=== PATIENT | female | born 1935 | race Caucasian/White ===

== ENCOUNTER 2020-12-17 10:32 | Inpatient (IN) | payer MEDICARE, OTHER ==
[~2020-12-17] VITALS: Ht 167.6 cm; Wt 75.9 kg
[2020-12-17] MEDS ORDERED: DULO60 PO (10:55)
[2020-12-17] MEDS ORDERED: METF500 PO (10:56)
[2020-12-17] MEDS ORDERED: GABA800 (10:57)
[2020-12-17] MEDS ORDERED: POTCHL20ER PO (10:58)
[2020-12-17] MEDS ORDERED: ABILIFY MYCITE2 M2 PO (10:59)
[2020-12-17] MEDS ORDERED: PRAM.5 PO ×2 (10:59→11:47)
[2020-12-17] MEDS ORDERED: EXELON1 EA11 (11:02)
[2020-12-17] MEDS ORDERED: RIVASTIGMINE6 MG PO (11:03)
[2020-12-17 11:06] LABS: BASOPHILS ABSOLUTE AUTO 0.03 K/mm3 (0.00-0.23); BASOPHILS PERCENT AUTO 0 % (0-2); EOSINOPHILS ABSOLUTE AUTO 0.01 K/mm3 (0.00-0.68); EOSINOPHILS PERCENT AUTO 0 % (0-6); Hematocrit 32.7 % (33.0-51.0); Hemoglobin 10.5 g/dL (11.5-16.0); IMMATURE GRAN ABSOLUTE AUTO 0.09 K/mm3 (0.00-0.10); IMMATURE GRAN PERCENT AUTO 1 % (0-1); LYMPHOCYTES ABSOLUTE AUTO 1.93 K/mm3 (0.84-5.20); LYMPHOCYTES PERCENT AUTO 11 % (21-46); MONOCYTES ABSOLUTE AUTO 1.71 K/mm3 (0.16-1.47); MONOCYTES PERCENT AUTO 10 % (4-13); Mean Corpuscular HGB 29.2 pg (26.0-34.0); Mean Corpuscular HGB Conc 32.1 g/dL (31.5-36.5); Mean Corpuscular Volume 91 fL (80-100); Mean Platelet Volume 9.5 fL (9.1-12.4); NEUTROPHILS ABSOLUTE AUTO 13.31 K/mm3 (1.96-9.15); NEUTROPHILS PERCENT AUTO 78 % (41-73); Platelet Count 345 K/mm3 (150-400); RDW Coefficient Variation 15.9 % (11.7-14.2); RDW Standard Deviation 52.9 fL (35.1-46.3); Red Blood Cell Count 3.59 M/mm3 (3.80-5.20); White Blood Cell Count 17.08 K/mm3 (4.00-11.30)
[2020-12-17 11:26] LABS: Alanine Aminotransfer (ALT/SGP 55 U/L (12-78); Albumin, Blood 2.4 g/dL (3.4-5.0); Albumin/Globulin Ratio 0.5 (0.8-1.8); Alk Phos 127 U/L (50-136); Anion Gap 6 mmol/L (6-16); Aspartate Aminotrans (AST/SGOT 68 U/L (12-37); Bilirubin, Total 1.1 mg/dL (0.1-1.0); Blood Urea Nitrogen 19 mg/dL (8-24); Bun/Creatinine Ratio 25.4 (12.0-20.0); CO2, Blood 23 mmol/L (21-32); Chloride, Blood 103 mmol/L (98-108); Creatinine, Blood 0.75 mg/dL (0.40-1.00); Globulin, Blood 5.3 g/dL (2.2-4.0); Glomerular Filtration Rate >60 (60-); Glucose, Blood 258 mg/dL (70-99); Potassium, Blood 4.8 mmol/L (3.5-5.5); Sodium, Blood 132 mmol/L (136-145); Total Protein, Blood 7.7 g/dL (6.4-8.2); Troponin I 0.168 ng/mL (0.000-0.040)
[2020-12-17] MEDS ORDERED: EXELON1 EA11 TOP (11:48)
[2020-12-17] MEDS ORDERED: Percocet 10-321 EACH PO (11:50)
[2020-12-17 11:56] LABS: SARS-Cov-2 (COVID-19) PCR, MMC NEGATIVE (NEGATIVE)
[2020-12-17 13:11] LABS: Source, Urine Clean Catch
[2020-12-17 13:12] LABS: Appearance, Urine Turbid (Clear); Bilirubin, Urine Neg (Neg); Blood, Urine 4+ (Neg); Color, Urine Yellow (P-Yellow); Glucose Qualitative, Urine 2+ (Neg); Ketones, Urine 1+ (Neg); Leukocyte Esterase, Urine 3+ (Neg); Nitrite, Urine Neg (Neg); Protein, Urine 3+ (Neg); Specific Gravity, Urine 1.025 (1.003-1.022); Urobilinogen, Urine 1+ (Normal)
[2020-12-17 13:29] LABS: Bacteria Many /hpf; Squamous Epithelial Cells Many /hpf (Few); White Blood Cells, Urine TNTC /hpf (0-5)
--- NOTE | 2020-12-17 18:19 | NUR ---
PT ARRIVED FROM ER THIS AFTERNOON WITH RESP FAILURE. PT WITH PNA TO BILAT LUNGS, UTI AND ELEVATED BNP. PT WITH MILD CONFUSION AT BASELINE WHICH WORSENS THIS EVENING, PER SON THIS HAS BEEN NORMAL FOR HER IN RECENT MONTHS. PT WAS MOVED FROM [place] YESTERDAY TO COME LIVE IN ASSISTED LIVING. PT ANSWERS MOST QUESTIONS APPROPRIATELY, BECOMES GUARDED WHEN IT IS DISCUSSED WITH FMAILY IN FRONT OF HER ABOUT HER CONFUSION. PT REPORTS CHRONIC BACK PAIN WHICH SHE WAS TREATED WITH PERCOCET FOR PAIN. PT STRAIGHT CATH'S FOR URINE AT HOME, PT WAS STRAIGHT CATHED THIS EVENING WITH 200ML OUTPUT. 3+ EDEMA NOTED TO LEGS BILAT WITH WEEPING WOUNDS NOTED TO LEGS BILAT WHICH ARE REDRESSED UPON ARRIVAL.
--- NOTE | 2020-12-17 20:13 | NUR ---
STATUS UPDATE PT FOUND IN ROOM W/AIRVO OFF. SATS DOWN TO LOW 80'S. PT C/O PAIN IN NECK AND BACK. STATES "I'M CHOKING!" APPEARS PALE AND ANXIOUS. NON-PRODUCTIVE COUGH. THIS RN AND WHITNEY HUTCHINSON AT BEDSIDE TO REASSURE PT AND REAPPLY AIRVO. PT REQUESTS BLANKETS OFF. PT CALMS WITH STAFF AT BEDSIDE. AIRVO AT 45 L/MIN AND 95% FIO2. RR IS 40-50 BPM. RR BEGINS TO SLOW WITH THIS RN AT BEDSIDE, PT GIVEN PO MEDS PER ORDERS AND PRN TYLENOL. PT REQUESTS "SOMETHING FOR THIS COLD." LS COARSE T/O, DIMINISHED IN BASES. MO WHEEZING NOTED BY THIS RN ON AUSCULTATION. PT SATS UP TO 92-93%. PT PULLS AIRVO OUT OF NOSE, DESATS BACK DOWN INTO 80'S. THIS RN REMINDS PT NOT TO REMOVE AIRVO AND NEED FOR O2. PT STATES "I KNOW, I KNOW." PT HAS DRY SOUNDING NON-PRODUCTIVE COUGH.
--- NOTE | 2020-12-17 22:06 | NUR ---
PT STATUS PT CONTINUES TO PULL AT AIRVO AND PINCH TUBING. THIS RN, ELDA AND NERYEDA RT, AND WHITNEY SOLICITING FREIGHT AGENT EDUCATE PT ON NEED TO KEEP AIRVO ON D/T LOW SATS. PT VERBALIZES UNDERSTANDING. SATS 89-93% ON AIRVO AT 60 LPM AND FIO2 OF 95%.
--- NOTE | 2020-12-17 22:50 | NUR ---
PT STATUS PT DISCONNECTS EWING CATHETER FROM BAG TUBING, FOUND BY NEDA SENA WHEN AT BEDSIDE TO CHANGE TELE STICKERS. PT STATES SHE WAS TRYING TO REMOVE THE RED TAG BECAUSE SHE DIDN'T THINK IT NEEDED TO BE ON THE EWING. THIS RN EDUCATES PT ABOUT NOT TOUCHING OR PULLING AT LINES, TUBES, WIRES. PT VERBALIZES UNDERSTANDING. MEGHAN MCKINNEY AND WHITNEY GRAHAMA ASSIST THIS RN WITH CLEANING PT UP AND CHANGING LINENS. PT SAT UP HIGH IN BED, SATS MID 80'S ON AIRVO, COMES UP TO 90'S AFTER SEVERAL MINUTES. PT REMINDED BY THIS RN NOT TO MESS WITH ANY CORDS, LINES, TUBES.
[2020-12-17 23:37] LABS: Source, Urine Catheter
[2020-12-17 23:39] LABS: Bilirubin, Urine Neg (Neg); Blood, Urine 3+ (Neg); Glucose Qualitative, Urine 4+ (Neg); Ketones, Urine Neg (Neg); Leukocyte Esterase, Urine 2+ (Neg); Nitrite, Urine Neg (Neg); Protein, Urine 2+ (Neg); Urobilinogen, Urine 3+ (Normal)
[2020-12-17 23:49] LABS: Appearance, Urine Hazy (Clear); Color, Urine Yellow (P-Yellow)
[2020-12-17 23:51] LABS: Bacteria Mod /hpf; Squamous Epithelial Cells Few /hpf (Few); White Blood Cells, Urine TNTC /hpf (0-5)
--- NOTE | 2020-12-17 23:58 | NUR ---
STATUS UPDATE PT SATS RAPIDLY DROP TO 50'S-60'S ON THE MONITOR, WHEN THIS RN TO BEDSIDE, PT HAS AIRVO CANNULA PUSHED UP AGAINST THE TIP OF HER NOSE PULLED OUT OF HER NOSTRILS AND IS NOT GETTING ANY O2 FLOW. THIS RN REPLACES CANNULA AND PROVIDES PT WITH EDUCATION REGARDING PLACEMENT OF AIRVO. SATS SLOWLY BACK UP TO 93% AFTER SEVERAL MINUTES WITH THIS RN AT BEDSIDE. GRZEGORZ RN EDUCATES PT ON MEDS AVAILABLE FOR C/O DISCOMFORT AND COUGH. PT C/O THAT AIR IN AIRVO IS "TOO COLD" THIS RN CALLS NEREYDA RT, NEREYDA STATES D/T FLUID CHANGE ON AIRVO IT WILL TAKE SOME TIME TO WARM UP.
[2020-12-18 01:10] LABS: Adenovirus Not Detected (NOT DETECT); Bordetella pertussis Not Detected (NOT DETECT); Chlamydophila pneumoniae Not Detected (NOT DETECT); Coronavirus 229E Not Detected (NOT DETECT); Coronavirus HKU1 Not Detected (NOT DETECT); Coronavirus NL63 Not Detected (NOT DETECT); Coronavirus OC43 Not Detected (NOT DETECT); Human Metapneumovirus Not Detected (NOT DETECT); Human Rhinovirus/Enterovirus Not Detected (NOT DETECT); Influenza A/2009-H1 Not Detected (NOT DETECT); Influenza A/H1 Not Detected (NOT DETECT); Influenza A/H3 Not Detected (NOT DETECT); Influenza B Not Detected (NOT DETECT); Mycoplasma pneumoniae Not Detected (NOT DETECT); Parainfluenza Virus 1 Not Detected (NOT DETECT); Parainfluenza Virus 2 Not Detected (NOT DETECT); Parainfluenza Virus 3 Not Detected (NOT DETECT); Parainfluenza Virus 4 Not Detected (NOT DETECT); Respiratory Syncytial Virus Not Detected (NOT DETECT); SARS-Cov-2 (COVID-19), BioFire Not Detected (NOT DETECT)
--- NOTE | 2020-12-18 02:57 | NUR ---
STATUS UPDATE PT TOLERATING CPAP WELL, SATS 94-97% AT THIS TIME ON CPAP. APPEARS CALMER. RR IS DECREASED. CURRENTLY 22-26 BMP DOWN FROM 40-50 BPM. PT HAS BEEN MEDICATED PER ORDERS WITH ATIVAN AND LASIX. EWING DRAINING JADA COLORED URINE. APPEARS TO CURRENLTY HAVE OUT 500 MLS IN BAG SINCE INSERTION THIS SHIFT.
--- NOTE | 2020-12-18 03:51 | NUR ---
BLOOD IN URINE BLOOD AND LARGE CLOT SEEN IN EWING CATHETER BAG AND TUBING, CLOT ADHERED TO SIDE OF TUBING, RED URINE DRAINING. FOLLOWING REASSESSMENT, CLEAR URINE NOW DRAINING AROUND CLOT IN TUBING. AROUND 1200 MLS OUT IN BAG AT THIS TIME. RED URINE VISIBLY AT TOP HALF OF BAG. GRZEGORZ RN AT BEDSIDE WITH PT D/T PT WANTING CPAP OFF. PT SWITCHED BACK TO AIRVO. ELDA RT AT BEDSIDE TO ASSIST WITH TRANSITION TO AIRVO ON CPAP/BIPAP MACHINE. PT WANTS TO TAKE OFF AIRVO, PT EDUCATED ON KEEPING AIRVO ON OR NEEDING CPAP AT THIS TIME D/T LOW SATS. SATS 91% ON AIRVO AT 60 L/MIN AND 100% FIO2.
[2020-12-18 04:14] LABS: BASOPHILS ABSOLUTE AUTO 0.03 K/mm3 (0.00-0.23); BASOPHILS PERCENT AUTO 0 % (0-2); EOSINOPHILS ABSOLUTE AUTO 0.01 K/mm3 (0.00-0.68); EOSINOPHILS PERCENT AUTO 0 % (0-6); Hematocrit 36.6 % (33.0-51.0); Hemoglobin 11.5 g/dL (11.5-16.0); IMMATURE GRAN ABSOLUTE AUTO 0.14 K/mm3 (0.00-0.10); IMMATURE GRAN PERCENT AUTO 1 % (0-1); LYMPHOCYTES ABSOLUTE AUTO 1.35 K/mm3 (0.84-5.20); LYMPHOCYTES PERCENT AUTO 6 % (21-46); MONOCYTES ABSOLUTE AUTO 1.45 K/mm3 (0.16-1.47); MONOCYTES PERCENT AUTO 7 % (4-13); Mean Corpuscular HGB Conc 31.4 g/dL (31.5-36.5); Mean Corpuscular Volume 92 fL (80-100); Mean Platelet Volume 9.6 fL (9.1-12.4); NEUTROPHILS PERCENT AUTO 86 % (41-73); Platelet Count 358 K/mm3 (150-400); RDW Coefficient Variation 15.9 % (11.7-14.2); RDW Standard Deviation 53.2 fL (35.1-46.3); Red Blood Cell Count 3.96 M/mm3 (3.80-5.20); White Blood Cell Count 21.58 K/mm3 (4.00-11.30)
[2020-12-18 04:40] LABS: Alanine Aminotransfer (ALT/SGP 69 U/L (12-78); Albumin, Blood 2.4 g/dL (3.4-5.0); Albumin/Globulin Ratio 0.4 (0.8-1.8); Alk Phos 148 U/L (50-136); Anion Gap 7 mmol/L (6-16); Aspartate Aminotrans (AST/SGOT 62 U/L (12-37); Bilirubin, Total 1.1 mg/dL (0.1-1.0); Blood Urea Nitrogen 16 mg/dL (8-24); Bun/Creatinine Ratio 26.5 (12.0-20.0); CO2, Blood 22 mmol/L (21-32); Calcium, Blood 9.3 mg/dL (8.5-10.1); Chloride, Blood 102 mmol/L (98-108); Globulin, Blood 5.8 g/dL (2.2-4.0); Glomerular Filtration Rate >60 (60-); Glucose, Blood 273 mg/dL (70-99); Magnesium, Blood 1.7 mg/dL (1.6-2.4); Potassium, Blood 4.3 mmol/L (3.5-5.5); Sodium, Blood 131 mmol/L (136-145); Total Protein, Blood 8.2 g/dL (6.4-8.2)
--- NOTE | 2020-12-18 05:35 | NUR ---
SHIFT SUMMARY PT ANXIOUS AND FORGETFUL. VERY PARTICULAR WITH HER CARE. REMOVES AIRVO AND DESATS. ASKS WHEN IT CAN COME OFF. COMPLAINS OF VITALS MONITOR "CLOCK" AND ALL THE NOISE AND COMMOTION AROUND HER. FORGETFUL OF MEDICATION SHES ALREADY TAKEN AND PREVIOUS CONVERSATIONS. PT IS DNR. STATES SHE WOULD BE INTUBATED IF NECCESSARY. CURRENTLY ON AIRVO 60L 100% FIO2 AFTER BEING ON CPAP FOR >1 HR. BILATERAL +3 EDEMA ON LE. 2300 OUTPUT ON EWING AFTER LASIX, URINE INITIALLY RED. NOW CLEAR. C/O OF BACK PAIN AND HEADACHE. MANAGED PER EMAR. LUNG SOUNDS COARSE. DIMINISHED IN BASES. SATS OVER 90% WHILE ON AIRVO AT REST. DESATS TO 60% WHEN OFF. IN BED WATCHING TV WITH CALL ALARM AT SIDE. WILL CONTINUE TO MONITOR UNTIL REPORT GIVEN TO DAYSHIFT RN
[2020-12-18 13:49] LABS: Source, Urine Catheter
[2020-12-18 14:00] LABS: Appearance, Urine Cloudy (Clear); Bilirubin, Urine Neg (Neg); Blood, Urine 5+ (Neg); Color, Urine Red (P-Yellow); Glucose Qualitative, Urine 3+ (Neg); Ketones, Urine 1+ (Neg); Leukocyte Esterase, Urine 3+ (Neg); Nitrite, Urine Neg (Neg); Protein, Urine 4+ (Neg); Specific Gravity, Urine 1.015 (1.003-1.022); Urobilinogen, Urine 2+ (Normal)
[2020-12-18 14:14] LABS: Bacteria Few /hpf; Red Blood Cells, Urine 50-100 /hpf (0-2); Squamous Epithelial Cells Few /hpf (Few); Transitional Epithelial Cells Few /hpf (0-Rare)
--- NOTE | 2020-12-18 15:26 | NUR ---
UPDATE AT 1520, THIS RN CONTACTED DR DILLON DUE TO PT CONSTANTLY PULLING OFF CPAP AND PULLING AT LINES. THIS RN INFORMED DR DILLON THAT PT RECIEVED 0.5MG ATIVAN AND DID NOT AFFECT PT. DR DILLON INFORMED LEONARDO RN THAT ORDERS FOR ZYPREXA WILL BE PLACED BY THE DR. RESTRAINT ORDERS WERE ALSO APPROVED BY DR DILLON IF/WHEN NEEDED.
--- NOTE | 2020-12-18 17:46 | NUR ---
SHIFT SUMMARY PT A/OX3, CONFUSED. PT HR RAN ST T/O SHIFT RANGING 116-130. PT WAS ON AIRVO 60L 100% AT BEGGINING OF SHIFT, QUICKLY CHANGED TO CPAP AFTER O2 SATS MAINTAINED IN THE HIGH 80'S. PT SATS >89% ON CPAP WHEN AT REST, DESATS QUICKLY WHEN CPAP IS REMOVED. PT WAS PICKING AT LINES AND GOWN AND TRYING TO CLIMB OUT OF BED, 05MG ATIVAN GIVEN, NO AFFECT TO PT. ZYPREXA IM ORDERED AFTER INFORMING DR DILLON. PT HAS EWING THAT HAD YELLOW URINE AT BEGGINING OF SHIFT, EWING BECAME CLOGGED. EWING IRRIGATED, BRIGHT RED URINE BEGAN DRAINING TO GRAVITY, URINE SAMPLE COLLECTED. AFTER CLOGGING TWICE, DR DILLON ORDERED [address] EWING WITH IRRIGATION. PT SEEN BY SPEECH THERAPY, PUREE DIET ORDERED. PO MEDS CRUSHED AND GIVEN IN APPLESAUCE.
--- NOTE | 2020-12-18 20:36 | NUR ---
STATUS UPDATE THIS RN SITS 1:1 WITH PT AT THIS TIME D/T PT AGITATION AND PULLING AT CPAP, IV'S, EWING, AND TRYING TO GET OUT OF BED. PT BECOMES INCREASINGLY AGITATED, THROWS SMALL STUFFED ANIMAL AT STAFF, PULLS AWAY, NOT DIRECTABLE. PT KEEPS SAYING SHE NEEDS HER WALKER TO "GO". FRANCOISE MCKINNEY MEDICATES PT WITH ATIVAN FOR AGITATION PER ORDERS, PT CALMS, STOPS PULLING AT CORDS AND LINES. AFTER 10 MINUTES PT BEGINS TO BECOME MORE ALERT. MUMBLING DIFFICULT TO UNDERSTAND AROUND CPAP. PT SATS 88% ON CPAP AT THIS TIME. 3-WAY EWING DRAINING PINK TINGED URINE. IRRIGATION SLOWED TO A DRIP.
[2020-12-19 03:37] LABS: BASOPHILS ABSOLUTE AUTO 0.02 K/mm3 (0.00-0.23); BASOPHILS PERCENT AUTO 0 % (0-2); EOSINOPHILS ABSOLUTE AUTO 0.02 K/mm3 (0.00-0.68); EOSINOPHILS PERCENT AUTO 0 % (0-6); Hematocrit 32.8 % (33.0-51.0); Hemoglobin 10.2 g/dL (11.5-16.0); IMMATURE GRAN ABSOLUTE AUTO 0.13 K/mm3 (0.00-0.10); IMMATURE GRAN PERCENT AUTO 1 % (0-1); LYMPHOCYTES ABSOLUTE AUTO 1.17 K/mm3 (0.84-5.20); LYMPHOCYTES PERCENT AUTO 6 % (21-46); MONOCYTES ABSOLUTE AUTO 1.37 K/mm3 (0.16-1.47); MONOCYTES PERCENT AUTO 7 % (4-13); Mean Corpuscular HGB Conc 31.1 g/dL (31.5-36.5); Mean Corpuscular Volume 93 fL (80-100); Mean Platelet Volume 9.4 fL (9.1-12.4); NEUTROPHILS ABSOLUTE AUTO 16.95 K/mm3 (1.96-9.15); NEUTROPHILS PERCENT AUTO 86 % (41-73); Platelet Count 292 K/mm3 (150-400); RDW Coefficient Variation 15.7 % (11.7-14.2); Red Blood Cell Count 3.52 M/mm3 (3.80-5.20); White Blood Cell Count 19.66 K/mm3 (4.00-11.30)
[2020-12-19 03:48] LABS: Anion Gap 4 mmol/L (6-16); Blood Urea Nitrogen 15 mg/dL (8-24); Bun/Creatinine Ratio 27.4 (12.0-20.0); CO2, Blood 31 mmol/L (21-32); Calcium, Blood 8.7 mg/dL (8.5-10.1); Chloride, Blood 103 mmol/L (98-108); Creatinine, Blood 0.55 mg/dL (0.40-1.00); Glomerular Filtration Rate >60 (60-); Glucose, Blood 230 mg/dL (70-99); Magnesium, Blood 1.6 mg/dL (1.6-2.4); Phosphorus, Blood 2.1 mg/dL (2.5-4.9); Potassium, Blood 3.3 mmol/L (3.5-5.5); Sodium, Blood 138 mmol/L (136-145)
--- NOTE | 2020-12-19 07:58 | NUR ---
ASSUMED PT CARE. PT RESTLESS IN BED, MUMBLES INCOHERENTLY, IN RESTRAINTS SECONDARY TO PULLING AT BIPAP. PT UNABLE TO FOLLOW SIMPLE COMMANDS. FULLER. PRECEDEX TITRATED UP TO ACHIEVE RASS 0. PT BIPAP DEPENDENT 03/02 100% AT THIS TIME. LUNGS DIM IN BASES. HYPOACTIVE BS. CBI WITH FC, UO CLEAR. STAT CXR DONE THIS AM.
--- NOTE | 2020-12-19 08:47 | NUR ---
SPOKE WITH MD DILLON IN PTS ROOM; INFORMED UNABLE TO GIVE ANY PO MEDS SECONDARY TO BIPAP DEPENDENCE AND ONGOING CONFUSION. PT STATUS AND POC REVIEWED WITH .
--- NOTE | 2020-12-19 11:09 | NUR ---
Review of pt with Nursing staff and hospitalist. Called pt daughter to review status. Daughter had been updated about change in condition but did not know she was in icu. Daughter realys that she has been struggling with fluid overload for about eight years now. She has recently had a fall. She had had great change in her life recently. They moved her here from [place]. The [place]. We discussed her slow decline the past few months. Advised her of Dr Horne care plan.Advised her of the need for high bipap support. She will be in this afternoon to see her mother. We discussed that if she pulls through this event she may need rehab or different living situation. We also discussed if she staops waling or not wanting to eat. Or, if she declines more on thi admission we may need to discuss hospice. She was open to conversation and had thought that would be coming in the future. will continue to follow. kps score 30% pt dnr and daughter respects that choice as appropriate.
--- NOTE | 2020-12-19 18:30 | NUR ---
SHIFT SUMMARY PT REQUIRED PRECEDEX GTT AT 0.5-0.7MCG/KG/MIN TO MAINTAIN RASS 0. PT A/OX0. RESTLESS PRIOR TO SEDATION, AND INCREASINGLY RESTLESS WHEN PRECEDEX TITRATED DOWN. NO RESTRAINTS UTILIZED. PT FULLER, PERRLA, FACE SYMMETRICAL, HOWEVER UNABLE TO FOLLOW COMMANDS OR DEMONSTRATE UNDERSTANDING OF SELF, LOCATION, SITUATION. PT BIPAP DEPENDENT, AT BEG OF SHIFT SETTINGS 03/02 100%; AND END OF SHIFT 100%. STAT CXR SHOWS WORSENING PNA PER REPORT. IVABX MODIFIED. SR-ST. NORMOTENSIVE. AFEBRILE. NPO SECONDARY TO BIPAP AND ALOC. CBI EFFECTIVE. UO CLEAR YELLOW. LASIX GIVEN X 2. K AND PHOS REPLACED. PT REPOSITIONED Q 2 HRS. DTR AT BEDSIDE TODAY, UPDATED BY MDS. PALLIATIVE CONSULT.
--- NOTE | 2020-12-19 20:00 | NUR ---
ASSUMED CARE RECIEVED REPORT FROM HANK MADSEN AT 1900. PT CURRENTLY SEDATED WITH PRECEDEX AT 0.6MCG/KG/HR. SHE IS UNABLE TO RESPOND TO VERBAL STIMULI AND SHOWING NO PURPOSEFUL MOVEMENTS. SHE IS ON BIPAP 20/16 FIO2 100%, SPO2 >92%. LUNGS ARE DIMINISHED T/O. HR SINUS TACH IN 100'S. BP STABLE, MAP >65. CONTINUOUS BLADDER IRRIGATION RUNNING, EWING PATENT DRAINING CLEAR, LIGHT YELLOW URINE. SKIN ON BLE IS VERY DRY, WRINKLED, AND DISCOLORED. OVERALL SKIN IS C/D/I AND FRAGILE. PT HAS PERIPHERAL IV'S IN PLACE TO RIGHT FOREARM AND RIGHT WRIST, WNL. ORDERS REVIEWED AND WILL TREAT PRESCRIBED.
--- NOTE | 2020-12-19 20:10 | NUR ---
ORAL CARE ATTEMPED TO DO ORAL CARE ON PATIENT. REMOVED BIPAP MASK I WAS UNABLE TO VIEW PT'S MOUTH WITH MASK ON. PT BIT DOWN ON ORAL CARE TUBE AND ALSO BIT OFF THE SPONGE TIP. WAS ABLE TO REMOVE THE SPONGE FROM HER MOUTH. SHE QUICKLY DESATTED INTO 70'S, AND RECOVERED SLOWLY INTO UPPER 90'S.
--- NOTE | 2020-12-20 00:52 | NUR ---
ORAL CARE ATTEMPTED AGAIN, BIPAP MASK REMOVED AND PT BIT DOWN ON ORAL SUCTION TUBE AGAIN. DESATTED INTO LOW 80'S QUICKLY. BIPAP PLACED BACK ON AND FIO2 INCREASED FROM 90% TO 100%, AND VERY SLOWLY RECOVERED TO 94%.
[2020-12-20 03:58] LABS: BASOPHILS ABSOLUTE AUTO 0.03 K/mm3 (0.00-0.23); BASOPHILS PERCENT AUTO 0 % (0-2); EOSINOPHILS ABSOLUTE AUTO 0.09 K/mm3 (0.00-0.68); EOSINOPHILS PERCENT AUTO 0 % (0-6); Hematocrit 34.1 % (33.0-51.0); Hemoglobin 10.3 g/dL (11.5-16.0); IMMATURE GRAN ABSOLUTE AUTO 0.15 K/mm3 (0.00-0.10); IMMATURE GRAN PERCENT AUTO 1 % (0-1); LYMPHOCYTES ABSOLUTE AUTO 1.74 K/mm3 (0.84-5.20); LYMPHOCYTES PERCENT AUTO 8 % (21-46); MONOCYTES ABSOLUTE AUTO 1.42 K/mm3 (0.16-1.47); MONOCYTES PERCENT AUTO 7 % (4-13); Mean Corpuscular HGB Conc 30.2 g/dL (31.5-36.5); Mean Corpuscular Volume 96 fL (80-100); Mean Platelet Volume 9.8 fL (9.1-12.4); NEUTROPHILS ABSOLUTE AUTO 18.03 K/mm3 (1.96-9.15); NEUTROPHILS PERCENT AUTO 84 % (41-73); NRBC ABSOLUTE 0.04 K/mm3 (0.00-0.02); NRBC Auto 0.2 /100 WBC (0.0-0.2); Platelet Count 227 K/mm3 (150-400); RDW Coefficient Variation 15.7 % (11.7-14.2); RDW Standard Deviation 55.5 fL (35.1-46.3); Red Blood Cell Count 3.55 M/mm3 (3.80-5.20); White Blood Cell Count 21.46 K/mm3 (4.00-11.30)
[2020-12-20 04:28] LABS: Albumin, Blood 1.9 g/dL (3.4-5.0); Anion Gap 4 mmol/L (6-16); Blood Urea Nitrogen 24 mg/dL (8-24); Bun/Creatinine Ratio 39.5 (12.0-20.0); CO2, Blood 32 mmol/L (21-32); Calcium, Blood 8.7 mg/dL (8.5-10.1); Chloride, Blood 105 mmol/L (98-108); Creatinine, Blood 0.61 mg/dL (0.40-1.00); Glomerular Filtration Rate >60 (60-); Glucose, Blood 179 mg/dL (70-99); Magnesium, Blood 1.9 mg/dL (1.6-2.4); Phosphorus, Blood 2.7 mg/dL (2.5-4.9); Potassium, Blood 3.5 mmol/L (3.5-5.5); Sodium, Blood 141 mmol/L (136-145)
--- NOTE | 2020-12-20 06:30 | NUR ---
PT REMAINED DEPENDENT ON BIPAP T/O SHIFT. CURRENT SETTINGS 20/16, FIO2 75%, SPO2 98-99%. SHE IS A&O X0, PRECEDEX IS OFF. NO PURPOSEFUL MOVEMENTS, BUT SHE DOES MOVE HER FEET MINIMALLY. SHE REMAINED AFEBRILE T/O SHIFT. ORAL CARE IS VERY DIFFICULT TO DO SHE BITES DOWN ON ORAL SUCTION TUBE AND DESATS TO 70-LOW 80'S QUICKLY. HR IS SINUS TACH, RATE 110'S, BLOOD PRESSURE NORMOTENSIVE, STABLE. CONTINUOUS URINARY IRRIGATION REMAINS ON, 950MLS OUT, LIGHT YELLOW, CLEAR URINE OUT THIS SHIFT. WILL REPORT TO ONCOMING SHIFT.
--- NOTE | 2020-12-20 07:43 | NUR ---
ASSUMED PT CARE THIS AM. PRECEDEX OFF ON NOC SHIFT. PT WITHDRAWS TO NOX STIM ON ALL EXTREMITIES; NO FACIAL DROOP OR ASYMETRY NOTED; NO PURPOSEFUL MOVEMENT BUT PT MOVING BLE SPONTANEOUSLY; NO EYE CONTACT OR MEANINGFUL RESPONSE TO VERBAL STIMULI. VENT SETTINGS ADJUSTED THIS AM TO 16/12 AND 70% FROM 20/16 70%. PT SATS 95% AND GREATER. LUNGS DIM/TIGHT THROUGHOUT. NPO SECONDARY TO BIPAP DEPENDENCE. PT'S DTR MENTIONED YESTERDAY THAT PT WOULD NOT WANT FEEDING TUBE. FC WITH CBI; INTACT AND PATENT, DRAINING CLEAR YELLOW URINE. PLAN FOR ONGOING DISCUSSION OF GOALS OF CARE TODAY.
--- NOTE | 2020-12-20 09:54 | NUR ---
MD BARRAGAN GIVEN UPDATE ON PT STATUS AND POC, DECREASED NEURO STATUS; RESP STATUS WITH IMPROVEMENTS ON BIPAP SETTINGS.
--- NOTE | 2020-12-20 12:28 | NUR ---
Family contact for goals of care - Keon Lugo [phone] Case Conference with pt's Bedside RN, Dr White, Power Press Supervisor, Pharmacist, broke worker in ICU this am. Reviewed EMR. Spoke with daughter Keon, by phone, at length. She had received a good update from pt's bedside RN earlier. We discussed pt's current status, goals of care options today and going forward. She wants to be notified of any changes but does not want any escalation of care, including starting artificial nutrition, pressors, etc if pt becomes unstable. Pt is already a DNR status. She will be in to visit later. Her brother is arriving from [place] later today also and they will confer. Keon is most concerned about her mom suffering or suffocating. We discussed comfort care with removal of bipap only after medicating for air hunger and anxiety. Keon verbalized understanding that at any time she feels she would like to transition her mom to comfort care that she can let nurse, me or know. I updated pt's RN on the above conversation. No change in orders at this time. Mario wants to check in with staff when she visits for any other changes and discuss with her brother later today also.
--- NOTE | 2020-12-20 12:48 | NUR ---
SPOKE WITH MD DILLON, PT HR IN 120S ST, AT TIMES UP TO 140. AFEBRILE 97.5, SAT 97% ON BIPAP, CBI FC INTACT AND DRAINING. PT GRIMACING, HAS BEEN UNABLE TO TAKE PO ANALGESIA THAT SHE TAKES ROUTINELY. NEW ORDER OBTAINED FOR IV FENT X 1 NOW.
--- NOTE | 2020-12-20 14:37 | NUR ---
1400: MD BARRAGAN INFORMED THAT PT HR REMAINS ELEVATED DESPITE FENTANYL ADMINISTRATION, BP NORMOTENSIVE, O2 SAT 94% AND GREATER, AFEBRILE, CBI INTACT AND DRAINING WELL. NEW ORDERS OBTAINED. PT'S DTR ALICIA AT BEDSIDE, UPDATED ON PT STATUS. ALICIA HAVING QUESTIONS AND CONCERNS R/T TO HER MOTHER'S MENTATION STATUS DESPITE IMPROVEMENT IN RESP STATUS. MD BARRAGAN NOTIFIED AND AT BEDSIDE TO SPEAK WITH DTR AND ANSWER QUESTIONS.
--- NOTE | 2020-12-20 15:35 | NUR ---
Case conference with bedside RN and Dr White again. Mario has conferenced with . Pt's son expected later today. Permission obtained for two visitors today to assist with medical decision making and possible transition to comfort care/timeframe for transition. Visit made to bedside briefly while pt being trialed off of Bipap. She is not responding to mario or commands per mario or staff. Mario grateful her brother will be able to visit today also. underwriting assistant to pass on in report that pt may have second visitor today.
[2020-12-20 17:03] LABS: SARS-Cov-2 (COVID-19) PCR, MMC NEGATIVE (NEGATIVE)
--- NOTE | 2020-12-20 17:34 | NUR ---
SPOKE WITH RE: PT ONGOING ST 130S. PT HAS RECEIVED IV FENT X 1, NS BOLUS 500 ML X1. BP NORMOTENSIVE, OTHER VSS. DISCUSSED PT FLUILD BALANCE. ORDER TO HOLD EVENING DOSE OF LASIX TODAY. RN REQUESTED BETABLOCKER PRN FOR TACHYCARDIA, NO ORDER RECEIVED.
--- NOTE | 2020-12-20 18:07 | NUR ---
SHIFT SUMMARY PT REMAINS MINIMALLY RESPONSIVE THROUGHOUT SHIFT ON NO SEDATION. PT WILL GRIMACE, RESPOND TO TACTILE STIMULI WITH WITHDRAWAL TO ALL EXTREMITIES, AND MOAN. NO SPONTANEOUS EYE OPENING, PURPOSEFUL MOVEMENT, OR FOLLOWING COMMANDS. PT NORMOTENSIVE THROUGHOUT SHIFT. MD DILLON AND MD BARRAGAN UPDATED THAT PT ST IN 130S STARTING THIS AFTERNOON. GIVEN FENT IV X1, 500ML BOLUS X1. NO SIGNIFICANT CHANGES. DISCUSSED BB, NO NEW ORDER OBTAINED. BIPAP SETTINGS 14/10 FIO2 70-60% MAJORITY OF SHIFT. TRIALED PT ON AIRVO 80L 100%; PT SUSTAINED 30 MIN BEFORE DESAT IN 80S; PLACED BACK ON BIPAP. REPEAT COVID TEST NEGATIVE. CBI INTACT, GOOD UO. ABDIRIZAK ESTEVES HELD AFTER SPEAKING WITH MD. PT REPOSITIONED Q 2 HRS. MD BARRAGAN SPOKE WITH PT'S DTR. PLAN FOR FAMILY TO DISCUSS GOALS OF CARE AND LIKELY VISIT PT AGAIN TONIGHT. INSPECTOR AIDE AWARE.
--- NOTE | 2020-12-20 18:23 | NUR ---
PT HR ESCALATED TO 160ST, MD BARRAGAN UPDATED. NEW ORDER OBTAINED.
--- NOTE | 2020-12-20 20:00 | NUR ---
ASSUMED CARE RECEIVED REPORT FROM HANK MADSEN AT 1900. SON, DAVI, AT BEDSIDE. PT IS NOT ALERT OR ORIENTED. SHE IS MINIMALLY RESPONSIVE TO NOXIOUS STIMULI. DOES NOT MOVE EXTREMETIES OR GRIMACE WITH ORAL CARE. SHE REMAINS BIPAP DEPENDENT, 14/10 70% FIO2, SPO2 95%. RR IN 40'S, LUNGS COARSE IN UPPER LOBES, DIMINISHED IN BASES. HR IS SINUS TACH IN 120'S. BP SLIGHTLY HYPOTENSIVE, BUT PRN LABETALOL WAS GIVEN AROUND 1830. SHE IS AFEBRILE. CONTINUOUS URINARY IRRIGATION CONTINUES, URINE OUTPUT IS LIGHT YELLOW WITH NO CLOTS AT THIS TIME. PT'S SON AND DAUGHTER, ALICIA, PRESENT AND REQUESTED TO MAKE NO CHANGES TO PT'S CARE AT THIS TIME. THEY WILL ARRIVE TOMORROW MORNING AROUND 0900 TO DISCUSS PLAN OF CARE WITH , AND LIKELY DECIDE TO GO WITH COMFORT CARE. WILL UPDATE FAMILY WITH ANY ACUTE CHANGED T/O THE NIGHT. ORDERS REVIEWED AND WILL TREAT PRESCRIBED.
--- NOTE | 2020-12-20 22:22 | NUR ---
DR. BARRAGAN AT BEDSIDE. DISCUSSED THE PLAN OF CARE THAT THE SON AND DAUGHTER MENTIONED EARLIER. WILL CONTINUE TREATMENTS PRESCRIBED T/O THE NIGHT, AND DECIDE IN THE AM HOW TO PROCEED WITH SON AND DAUGHTER. 500ML NS BOLUS ORDERED FOR ONGOING SINUS TACH, RATE IN 120'S AND HYPOTENSIVE BP.
[2020-12-21 03:28] LABS: BASOPHILS ABSOLUTE AUTO 0.03 K/mm3 (0.00-0.23); BASOPHILS PERCENT AUTO 0 % (0-2); EOSINOPHILS PERCENT AUTO 0 % (0-6); Hematocrit 36.4 % (33.0-51.0); Hemoglobin 10.7 g/dL (11.5-16.0); IMMATURE GRAN ABSOLUTE AUTO 0.17 K/mm3 (0.00-0.10); IMMATURE GRAN PERCENT AUTO 1 % (0-1); LYMPHOCYTES ABSOLUTE AUTO 2.18 K/mm3 (0.84-5.20); LYMPHOCYTES PERCENT AUTO 13 % (21-46); MONOCYTES ABSOLUTE AUTO 1.36 K/mm3 (0.16-1.47); MONOCYTES PERCENT AUTO 8 % (4-13); Mean Corpuscular HGB 28.8 pg (26.0-34.0); Mean Corpuscular HGB Conc 29.4 g/dL (31.5-36.5); Mean Corpuscular Volume 98 fL (80-100); Mean Platelet Volume 10.4 fL (9.1-12.4); NEUTROPHILS ABSOLUTE AUTO 12.49 K/mm3 (1.96-9.15); NEUTROPHILS PERCENT AUTO 77 % (41-73); NRBC ABSOLUTE 0.25 K/mm3 (0.00-0.02); NRBC Auto 1.5 /100 WBC (0.0-0.2); Platelet Count 105 K/mm3 (150-400); RDW Coefficient Variation 16.2 % (11.7-14.2); RDW Standard Deviation 57.8 fL (35.1-46.3); Red Blood Cell Count 3.72 M/mm3 (3.80-5.20); White Blood Cell Count 16.23 K/mm3 (4.00-11.30)
[2020-12-21 03:46] LABS: Albumin, Blood 1.8 g/dL (3.4-5.0); Anion Gap 4 mmol/L (6-16); Blood Urea Nitrogen 55 mg/dL (8-24); Bun/Creatinine Ratio 43.7 (12.0-20.0); CO2, Blood 31 mmol/L (21-32); Calcium, Blood 8.7 mg/dL (8.5-10.1); Chloride, Blood 111 mmol/L (98-108); Creatinine, Blood 1.26 mg/dL (0.40-1.00); Glomerular Filtration Rate 40 (60-); Glucose, Blood 241 mg/dL (70-99); Magnesium, Blood 2.2 mg/dL (1.6-2.4); Phosphorus, Blood 4.4 mg/dL (2.5-4.9); Potassium, Blood 4.4 mmol/L (3.5-5.5); Sodium, Blood 146 mmol/L (136-145)
--- NOTE | 2020-12-21 06:32 | NUR ---
PT REMAINS BIPAP DEPENDENT, 02/12, FIO2 90%, SPO2 96-98, HOWEVER QUICKLY DESATS WHEN MASK REMOVED, SLOW TO RECOVER. TOLERATED ORAL CARE WITHOUT BITING TUBING. SHE IS UNRESPONSIVE, NO MOVEMENTS IN EXTREMITIES, OCCASIONALLY COUGHS AND MOANS. HR SUSTAINED ST IN 120-130'S. BP NORMOTENSIVE. 500ML FLUID BOLUS GIVEN X1. CBI REMAINS IN PLACE, URINE CLEAR, YELLOW, 550ML OUT THIS SHIFT. SON AND DAUGHTER TO BE DECIDING ON PLAN OF CARE WITH PHYSICIAN LATER THIS MORNING. WILL REPORT TO ONCOMING SHIFT.
--- NOTE | 2020-12-21 07:59 | NUR ---
ASSUMED CARE REPORT FROM PAZ MCKINNEY AT 0700. PT LAYING IN BED. BIPAP IN PLACE, 02/12/%. LUNGS COARSE IN BASES. TACHYPNEIC, RR 35-40. PT UNRESPONSIVE TO VERBAL OR NOXIOUS STIMULI. BITES ON SPONGE c ORAL CARE, ONLY RESPONSE NOTED. LEFT PUPIL 4 MM, RIGHT 2 MM, NO RESPONSE TO LIGHT. PT WARM TO TOUCH, 100.[address] ON MONITOR, RATE 120-130'S. BP STABLE. NS STARTED AT 125 ML/HR. RADIAL PULSES PAL, BLE c FIRM, WRINKLED SKIN, COOL TO TOUCH. PULSES FAINT. ABD SOFT, NON TENDER. HYPOACTIVE BT. EWING IN PLACE, CBI IN PLACE, URINE LIGHT YELLOW, NO CLOTS OR BLOOD NOTED. ANTICIPATING FAMILY VISIT AT 0900. WILL CONTINUE TO MONITOR.
--- NOTE | 2020-12-21 10:12 | NUR ---
Met with pt's freedom, Keon and Son, Guille at bedside after case conference and update obtained from pt's bedside RN. Good, long discussion regarding pt's current status and further decline in respiratory and kidney function since yesterday, as well as decrease in neuro status. S/S noted shared with family, primarily resp rate of 40-44 shallow respirations and increased work of breathing. Nonverbal indicators of pain, anxiety or distress not noted at this time outside of respiratory distress. Family would like to transition pt to comfort care this am. Additional family will be in to visit prior to institution of comfort care orders. RN, Rupal White and Jay updated. VO for comfort care obtained and entered. Screener notified of additional visitors allowed when they arrived. Plan of care and comfort care orderset discussed with bedside RN and rn hemodialysis charge. Will return t/o day as indicated for support to pt/family and staff.
--- NOTE | 2020-12-21 12:56 | NUR ---
COMFORT CARE FAMILY AT BEDSIDE. PLAN TO TRANSITION TO COMFORT CARE. WAQAS PALLIATIVE SPEAKING c FAMILY.
--- NOTE | 2020-12-21 13:29 | NUR ---
TOD 1315. FAMILY CHOSE [facility] FOR HOME CARE. ALL BELONGINGS TO BE SENT HOME c PT.
--- NOTE | 2020-12-21 14:20 | NUR ---
Return visit to pt and family at bedside after case conf with pt's RN, who was preparing to give comfort care medications in prep for d/c of bipap use per family request. Mario, Son and gson at bedside. Pt's bipap removed, profound pallor noted as previously. Pt's resp rate was 40 with shallow, nonfunctional respirations noted. S/s explained to family. Each appropriately tearful, grieving attentive to pt and eachother. Pt began having increased agonal breathing and long apnic episodes at 1310. No further respirations noted, outside of rare reflexive opening of jaw at 1315. RN checked for HR and found none at that time. Family remained at bedside and we left the room. I returned 10-15 minutes later. Family requests that we call [facility] and this was passed on to RN. Pt did not exhibit any nonverbal indicators of pain, anxiety, distress or agitation during brief period before demise. She had some reflexive gasps and one loud verbalization/moan prior to being without respirations. Family very appreciative of the care provided by drs and staff and very grateful for their mom's peaceful passing this afternoon.
== END 2020-12-21 13:15 | DRG 871 ==
LOC: ER 10:32 → PCU 12:58 → ICUE 12:58 → PCU 15:20 → ICUE 12-18 23:02
PROVIDERS: Emergency Medicine; Internal Medicine; Internal Medicine Critical Care Medicine; Nurse Practitioner Acute Care; ADMIT Internal Medicine
PROC: 5A0935A Assistance with Respiratory Ventilation, Less than 24 Consecutive Hours, High Flow/Velocity Cannula (ICD-10-PCS; principal; 2020-12-17)
PROC: 3E02340 Introduction of Influenza Vaccine into Muscle, Percutaneous Approach (ICD-10-PCS; 2020-12-17)
PROC: 5A09457 Assistance with Respiratory Ventilation, 24-96 Consecutive Hours, Continuous Positive Airway Pressure (ICD-10-PCS; 2020-12-18)
DX: A41.50 Gram-negative sepsis, unspecified (principal); J69.0 Pneumonitis due to inhalation of food and vomit; G92.8 Other toxic encephalopathy; I50.33 Acute on chronic diastolic (congestive) heart failure; J15.9 Unspecified bacterial pneumonia; J80 Acute respiratory distress syndrome; I21.A1 Myocardial infarction type 2; N39.0 Urinary tract infection, site not specified; E87.2 Acidosis; Z16.29 Resistance to other single specified antibiotic; Z66 Do not resuscitate; Z51.5 Encounter for palliative care; Z23 Encounter for immunization; Z20.822 Contact with and (suspected) exposure to COVID-19; R65.20 Severe sepsis without septic shock; D64.9 Anemia, unspecified; F03.90 Unspecified dementia, unspecified severity, without behavioral disturbance, psychotic disturbance, mood disturbance, and anxiety; E87.6 Hypokalemia; I46.8 Cardiac arrest due to other underlying condition; E11.9 Type 2 diabetes mellitus without complications; G25.81 Restless legs syndrome; Z98.890 Other specified postprocedural states; Z79.84 Long term (current) use of oral hypoglycemic drugs; Z79.899 Other long term (current) drug therapy; Q05.9 Spina bifida, unspecified; Z78.1 Physical restraint status
CPT/HCPCS: 0202U; 36415; 51701; 51702; 71045; 71260; 80053; 80069; 81001; 82947; 83036; 83605; 83735; 83880; 84145; 84484; 85025; 86140; 87040; 87077; 87086; 87186; 87449; 92610; 93005; 93010; 93306; 94660; 94762; 96365-59; 96367-59; 99285-25; A9270; J0456; J0696; J1650; J1940; J2060; J2270; J2405; J3010; J3370; J3480; J7030; J7040; J7050; J7060; Q9967; U0004